=== PATIENT | female | born 1935 | race Caucasian/White ===

== ENCOUNTER → 2016-12-26 | Outpatient (CLI) | payer MEDICARE, BC ==
[~2016-12-26] MED LIST: ALEVE 220MG220 MG PO; CELEXA40 MG PO; COZAAR 25MG25 MG/TAB; FISH OIL CONC1000 MG PO; FOLIC ACID PO; HCTZ; LISINOPRIL20 MG PO; NORCO 325 MG-7.1 TAB PO; NORVASC 5MG5 MG/TAB PO; PRAVACHOL 20MG20 MG PO; TRAVATAN 2.5 M2.5 M1; TRAVATAN Z 2.52.5 ML OU; VITAMIN C250250 MG PO; ZOCOR 20MG20 MG PO
== END ==
LOC: COL.LAB 12:47
DX: Z96.652 Presence of left artificial knee joint (principal)

== ENCOUNTER → 2016-12-31 | Outpatient (REF) | LOC: ZMSC 10:23 | DX: Z01.89 Encounter for other specified special examinations (principal) | CPT/HCPCS: P9016 ==

== ENCOUNTER → 2017-01-13 | Outpatient (CLI) | payer MEDICARE, BC | LOC: COL.VAS 14:50 | DX: M79.662 Pain in left lower leg (principal); R60.0 Localized edema ==